=== PATIENT | female | born 1990 | race Caucasian/White ===

== ENCOUNTER 2023-09-19 15:21 | Emergency (ER) | payer OTHER, SELFPAY ==
[2023-09-19 15:22] VITALS: BP 89/57
[2023-09-19 16:03] VITALS: BMI 23.5
[2023-09-19 16:36] VITALS: BP 126/71
--- NOTE | 2023-09-19 16:46 | ED.SKININJ ---
HPI-Injury
General
Chief Complaint: Skin Surface Trauma
Source: patient
Exam Limitations: none
Time Seen by Provider: 09/19/23 16:11
Nursing documentation reviewed up to this point in time: agreed with
History of Present Illness-Injury
Is this injury a work related problem?: No
Is pt an associate of [facility]/[place]?: No
Initial Injury comments:
Accidentally hit by golfball. Sustained lac to middle forehead. No LOC. Injury occurred just [employer]
Past History
Past History
ED Past Medical History: None
Review of Systems
Review of Systems
Allergies reviewed?: Yes
All Other Systems: ROS reviewed and negative except as documented in HPI and ROS
Constitutional: Reports no symptoms
Skin: Reports other (laceration to middle forehead)
Neurological: Reports no symptoms
Psychiatric: Reports no symptoms
Skin Exam
Laceration
Middle Forehead:
Length in cm: 2
Orientation: vertical
Type of Laceration: simple
Any active bleeding?: no active bleeding
Distal skin color and temperature: normal-warm & good color
Normal distal neurovascular exam: Yes
Range of motion: full
Phy Exam
General Physical Exam
General Presentation: well appearing and no apparent distress
General age: appears stated age
General Skin: warm and dry
General Habitus: normal
General Mental: alert
Eye Exam
Eye Exam: PERRL, EOMI, conjunctiva normal and globe normal
Neurological Exam
Neurological Exam: alert, oriented x3, CN II-XII intact, no motor deficits, no sensory deficits and speech normal
[place] Coma Scale
Eye Opening: Spontaneous
Verbal Response: Oriented
Motor Response: Obeys Commands
GCS Total Score: 15
Musculoskeletal Exam
Musculoskeletal Exam: full ROM and neuro vasc intact
Skin Exam
Skin Exam: normal color, warm/dry and no rash
Psychiatric Exam
Psychiatric Exam: normal mood/affect
Course
Vital Signs
Initial and Last Documented VS:
Initial Vital Signs
Temp Pulse Resp BP Pulse Ox
98.1 F 86 20 89/57 98
09/19/23 15:22 09/19/23 15:22 09/19/23 15:22 09/19/23 15:22 09/19/23 15:22
Last Documented Vital Signs
Temp Pulse Resp BP Pulse Ox
97.5 F 82 15 126/71 96
09/19/23 16:36 09/19/23 16:36 09/19/23 16:36 09/19/23 16:36 09/19/23 16:36
Procedures
Laceration Closure
Middle Forehead:
Status of Wound: clean
Description of Wound Edges: sharp
Preparation: cleaned with saline
Anesthesia: 1% Lidocaine
Revision/Debridement: routine- no revision
Wound exploration: explored to base- no FB
Type of Closure: layered closure
Skin Closure Material: 6-0 prolene (9) and 5-0 chromic gut (2)
*Critical Care Note
Total Time (30-74mins, 75-104mins- exclusive of procedures): Not Applicable
ED Attending Note
-
Portions of this chart may have been created with voice recognition software.� Occasional wrong word or��sound alike� substitutions may have occurred due to the inherent limitations of voice recognition software.
Discharge Plan
Departure
Patient Disposition: Home (Routine Discharge)
Date of Disposition: 09/19/23
Time of Disposition: 16:45
Patient with high blood pressure during this ER visit?: No
Condition: Good
Covid-19: Not Applicable
Discharge Problem:
Forehead laceration
Instructions: Laceration Repair With Stitches (DC)
Prescriptions:
No Action
No Current Medications
0
Referrals:
UNKNOWN - PT DOES,NOT KNOW [Family Provider] -
Activity Restrictions/Additional Instructions:
Sutures can be removed in 5-7 days by your family doctor.
Interventions
Interventions:
*Risk Screen - Suicide Last Done: 09/19/23 15:22
*General Assessment Last Done: 09/19/23 15:22
*Neglect/Abuse Screening Last Done: 09/19/23 15:22
ED- Fall Risk Assessment Last Done: 09/19/23 16:03
*ED COVID-19 Vaccine History Last Done: 09/19/23 15:22
ED-Skin Assessment Last Done: 09/19/23 16:03
Discharge Date and Time
Print Language: AMHARIC
== END 2023-09-19 16:50 | disposition home or self-care (01) ==
LOC: EMR 15:21
PROVIDERS: EMERGENCY PHYSICIAN Emergency Medicine
DX: S01.81XA Laceration without foreign body of other part of head, initial encounter (principal); W21.04XA Struck by golf ball, initial encounter
CPT/HCPCS: 12051; 99282

== ENCOUNTER 2023-09-27 17:10 | Emergency (ER) | payer OTHER, SELFPAY ==
[2023-09-27 17:13] VITALS: BP 118/75
--- NOTE | 2023-09-27 18:05 | ED.GENMED ---
History of Present Illness
General
Chief Complaint: Wound Check/Suture Removal
Source: patient and records
Time Seen by Provider: 09/27/23 17:49
History of Present Illness
History of Present Illness:
33yoF presenting to the ED for suture removal. She was seen in the ED on 09/19/23 for a forehead laceration. Nine Prolene sutures were placed at that time. She states the laceration seems to be well healed. She denies any signs of infection and denies
other concerns.
Past History
Past History
ED Past Medical History: None
Phy Exam
General Physical Exam
General Presentation: well appearing and no apparent distress
General age: appears stated age
General Skin: warm and dry
General Habitus: normal
General Mental: alert
Pulmonary Exam
Pulmonary Exam: no respiratory distress
[place] Coma Scale
Eye Opening: Spontaneous
Verbal Response: Oriented
Motor Response: Obeys Commands
GCS Total Score: 15
Skin Exam
Skin Exam: normal color, warm/dry and other (Well healed forehead laceration present with intact sutures. No signs of infection. )
Psychiatric Exam
Psychiatric Exam: normal mood/affect
Course
Vital Signs
Initial and Last Documented VS:
Initial Vital Signs
Temp Pulse Resp BP Pulse Ox
99.0 F 57 16 118/75 99
09/27/23 17:13 09/27/23 17:13 09/27/23 17:13 09/27/23 17:13 09/27/23 17:13
Last Documented Vital Signs
Temp Pulse Resp BP Pulse Ox
99.0 F 57 16 118/75 99
09/27/23 17:13 09/27/23 17:13 09/27/23 17:13 09/27/23 17:13 09/27/23 17:13
MDM/Problems Addressed
Differential Diagnosis Includes:
33yoF here for suture removal. Laceration appears healed on exam without signs of infection. Nine sutures removed with suture removal kit. Patient tolerated well. Home wound care discussed. Patient interested in scar revision and contact info
provided for plastic surgery.
*Critical Care Note
Total Time (30-74mins, 75-104mins- exclusive of procedures): Not Applicable
ED Attending Note
-
Portions of this chart may have been created with voice recognition software.� Occasional wrong word or��sound alike� substitutions may have occurred due to the inherent limitations of voice recognition software.
Discharge Plan
Departure
Patient Disposition: Home (Routine Discharge)
Date of Disposition: 09/27/23
Time of Disposition: 18:07
Patient with high blood pressure during this ER visit?: No
Discharge Problem:
Encounter for removal of sutures
Instructions: Stitches Removal
Prescriptions:
No Action
No Current Medications
0
Referrals:
NONE,* [Family Provider] -
Beny Peterson MD [Active] -
Activity Restrictions/Additional Instructions:
Return to the ER with any signs of infection.
Interventions
Interventions:
*Risk Screen - Suicide Last Done: 09/27/23 18:13
*General Assessment Last Done: 09/27/23 18:13
*Neglect/Abuse Screening Last Done: 09/27/23 18:13
ED- Fall Risk Assessment Last Done: 09/27/23 18:14
*ED COVID-19 Vaccine History Last Done: 09/27/23 18:13
*Nursing Disposition Last Done: 09/27/23 18:15
ED-Skin Assessment Last Done: 09/27/23 18:14
Discharge Date and Time
Discharge Date/Time: 09/27/23 18:16
Print Language: AUSTRALIAN
[2023-09-27 18:15] VITALS: BMI 28.3
== END 2023-09-27 18:16 | disposition home or self-care (01) ==
LOC: EMR 17:10
PROVIDERS: EMERGENCY PHYSICIAN Emergency Medicine
DX: Z48.02 Encounter for removal of sutures (principal)
CPT/HCPCS: 99281